=== PATIENT | male | born 1975 | race Caucasian/White ===

== ENCOUNTER 2016-11-29 09:04 | Day surgery (SDC) | payer BC ==
[~2016-11-29] VITALS: Ht 180.3 cm; Wt 83.5 kg
[~2016-11-29 09:04] MED LIST: ALPR1TAB2 PO; BUPIVACAINE-EPI 0.5%-1:200000 50 ML VIAL. ONE; CEFAZOLIN 2GM PREMIX 50 ML IV PRN; FENTANYL PF 100 MCG/2 ML VIAL. IV PRN; HYDROMORPHONE 2 MG/ML VIAL. IV PRN; IBUP-1027 PO; IV RINGERS,LACTATED 1000ML 1,000 ML IV SCH; LIDOCAINE 1% 1 ML SYRINGE. ID PRN; ONDANSETRON PF 4 MG/2 ML VIAL. IV PRN; OXYC15TA PO; PROCHLORPERAZINE 10 MG/2 ML VIAL. IV PRN
[2016-11-29] MEDS: BACITRACIN 50,000 UNIT in IV NORMAL SALINE 1000ML BAG 1,000 ML IRR ONE ×2 (10:18→11:45)
[2016-11-29] MEDS ORDERED: PROPOFOL 20 ML IV ONE (10:31)
[2016-11-29] MEDS ORDERED: FENTANYL PF 250 MCG/5 ML VIAL. ONE (10:31)
[2016-11-29] MEDS ORDERED: LIDOCAINE 2% PF Vial for OR 5 ML VIAL. ONE (10:31)
[2016-11-29] MEDS ORDERED: MIDAZOLAM HCL 2 MG/2 ML VIAL. ONE (10:31)
[2016-11-29] MEDS ORDERED: DEXAMETHASONE SOD PHOS 20 MG/5 ML VIAL. ONE (10:32)
[2016-11-29] MEDS ORDERED: ONDANSETRON PF 4 MG/2 ML VIAL. ONE (10:32)
[2016-11-29] MEDS ORDERED: FAMOTIDINE 20 MG/2 ML VIAL ONE (10:32)
[2016-11-29] MEDS ORDERED: SEVOFLURANE 31 TO 60 MINUTES. IH ONE (11:15)
[2016-11-29] MEDS ORDERED: KETOROLAC 30 MG/ML SYRINGE FOR OR. INJ ONE (12:31)
[2016-11-29] MEDS: FENTANYL PF 100 MCG/2 ML VIAL. IV PRN ×2 (13:04→13:17)
--- NOTE | 2016-11-29 13:05 | PDOC4 ---
Operative Note Operative Note Operative Note: Preoperative Diagnosis: Right inguinal hernia Postoperative Diagnosis: Same Procedure: Right inguinal hernia repair with mesh plug and patch Surgeon: Francis Marine [employer]argo Specialist: Lindsey CAMPOS Anesthesia: Gen. EBL: 20 mL Specimen: Hernia sac to pathology Drains: None Complications: None Indication: The patient is a 40-year-old male who is referred with a very large right angle hernia. He is known about it for years and it has progressed significantly. He does notice some symptoms particularly when the hernia is protruding. He was offered surgical repair. The details and risks of surgery were discussed. The risks include bleeding, infection, hernia recurrence, pain , anesthetic risk, potential need for additional surgery or procedure. He understands and would like to proceed. Description: The patient was taken to the operating room and placed supine on the operating table. Gen. anesthesia was performed. The right groin was shaved and prepped with ChloraPrep and draped in a standard surgical manner. An incision was made in the skin lines of the right groin with a scalpel. Cautery dissection was carried down to the external oblique aponeurosis. The aponeurosis was opened down to the external ring. The contents of the inguinal canal were digitally mobilized and encircled with a Arthur drain. There was a very large indirect hernia sac present with extension distal dominant to the scrotum. Initially there appeared to be likely bowel contents however these were able to be manually reduced. The hernia sac was then mobilized from the cord structures another surrounding tissue. Due to the very large and redundant amount of the hernia sac I elected to resect the majority of it. The sac was opened and split close to its base. The redundant portion of the sac was excised and sent to pathology. The sac was then oversewn with a running 2-0 Vicryl suture and reduced. A large Phasix mesh plug was placed in the defect and secured in position with interrupted 2-0 Vicryl sutures. The inguinal floor was then reinforced with a Prolene mesh patch. A 6 x 6" patch was tailored to provide good coverage of the entire inguinal floor. The patch was sutured into position with interrupted 2-0 Vicryl. Superiorly the mesh was sutured to the internal oblique muscle and aponeurosis while inferiorly was secured to the shelving edge of the inguinal ligament. A slit was made in the patch to accommodate the cord structures. Upon completion the patch rested well providing good coverage of the entire inguinal floor and the plug remained intact deep to it. The external oblique was closed over the mesh with a running 2-0 Vicryl suture. The subcutaneous tissue was closed with 3-0 Vicryl. Skin was then closed with a 4-0 Monocryl suture. The incision was infiltrated with half percent Marcaine with epinephrine. Half-inch Steri- Strips and a sterile dressing were then applied. The patient tolerated the procedure well and was sent to the recovery room in stable condition. At the end of the case all counts were correct. ELICIA ADAME MD Nov 29, 2016 13:05
--- NOTE | 2016-11-29 13:07 | DISCH ---
DISCHARGE INSTRUCTIONS Condition on Discharge Condition on Discharge: Stable Activity After Discharge Activity Instructions for Disc: Other, see below (no lifting over 20 lbs, no strenous activity) Driving Instructions after Dis: Other, see below (no driving while taking pain medications) Diet after Discharge Diet after Discharge: Regular Wound Incision Care Wound/Incision Care: Other, see below (keep dressing on 72 hours, may then remove and shower) Follow-Up Follow up with: Dr Adame in 2 weeks in office, call for appt [phone] ELICIA ADAME MD Nov 29, 2016 13:07
[2016-11-29] MEDS: MORPHINE SULFATE 2 MG/ML DISP.SYRIN. IV PRN ×2 (13:26→13:40)
[2016-11-29] MEDS ORDERED: OXYC-323 PO (13:38)
[2016-11-29] MEDS ORDERED: OXYCODONE/APAP 5/325 TABLET. PO ONE (13:45)
[2016-11-29 14:30] VITALS: BP 139/65
--- NOTE | 2016-12-01 15:09 | PATHOLOGY ---
PATHOLOGY REPORT * * * * * * * * FINAL DIAGNOSIS: Segment of mesothelial-lined fibromembranous and fibroadipose tissue, right inguinal herniorrhaphy: - Hernia sac. (SEANM:; d/t: 12/01/16) REPORT ELECTRONICALLY SIGNED BY: Tony Villegas M.D. DATE/TIME: 12/01/2016 13:47 * * * * * * * * GROSS PATHOLOGY: Received in formalin labeled "Milo Navas and right inguinal hernia sac," is a segment of blood tinged, pink-carpenter to yellow-carpenter, membranous, and lobulated fibroadipose tissue measuring 10.3 x 7.6 x 1.3 cm. No nodules or lesions are identified. Inspector Chief tissue is submitted in cassette A1. (TTL; 11/30/2016) INITIAL CPT CODE(S): A; 69997 Professional services performed by [facility] [place] [address] Technical services performed by [facility] at [address] [place] [address], [facility] [address], [place] [address]. SPECIMEN(S) RECEIVED: A.Right inguinal hernia sac CLINICAL HISTORY: Right inguinal hernia PATIENT: MILO NAVAS /AGE: 212/24/1975 (Age: 40) PATIENT #: [id number] ALT CASE #: SPECIMEN COLLECTION DATE: 11/29/2016 SPECIMEN RECEIVED DATE: 11/29/2016 [facility] - [address] [place] [address] - PHONE: [phone] * * * END OF REPORT * * *
== END 2016-11-29 14:48 | disposition home or self-care (01) ==
LOC: SURG 09:04
PROVIDERS: ATTEND Surgery
DX: K40.90 Unilateral inguinal hernia, without obstruction or gangrene, not specified as recurrent (principal); F41.9 Anxiety disorder, unspecified; F17.200 Nicotine dependence, unspecified, uncomplicated; F10.99 Alcohol use, unspecified with unspecified alcohol-induced disorder
CPT/HCPCS: 49505; 88302; C1769; C1781; J0690; J1100; J1885; J2250; J2270; J2405; J2704; J3010; J3490; J7030; J7120; S0028